=== PATIENT | female | born 1990 | race African-American/Black ===

== ENCOUNTER 2018-01-06 12:53 | Emergency (ER) | payer MEDICAID ==
[~2018-01-06] VITALS: Ht 165.1 cm; Wt 73.0 kg
[2018-01-06] MEDS ORDERED: ACETAMINOPHEN 325MG TABLET PO PRN (14:30)
[2018-01-06 15:12] LABS: CHLORIDE 107 mEq/L (98-107)
[2018-01-06 15:13] LABS: BASOPHILS % 0.2 % (0.0-2.0); EOSINOPHILS % 0.6 % (0.0-5.0); HEMOGLOBIN. 11.4 g/dL (12.0-16.0); LYMPHOCYTES % 9.5 % (20.0-50.0); MEAN CORPUSCULAR HEMOGLOBIN 31.2 pg (28.0-32.0); MEAN CORPUSCULAR VOLUME 93.1 fL (81.0-99.0); MEAN PLATELET VOLUME 8.7 fl (7.4-10.4); MONOCYTES % 5.6 % (2.0-8.0); NEUTROPHILS % 84.1 % (40.0-76.0); PLATELET 233 x1000/uL (130-400); RED BLOOD CELL COUNT 3.65 mill/uL (4.2-5.4); RED CELL DISTRIBUTION WIDTH 13.3 % (11.6-14.6)
[2018-01-06] MEDS ORDERED: ONDANSETRON HCL 4MG/2ML INJ IM ONE (15:30)
[2018-01-06] MEDS ORDERED: MORPHINE SULFATE 10 MG/ML CPJ IM ONE (15:30)
[2018-01-06 15:51] LABS: B-HCG QUANTITATIVE 6104 mIU/mL (<3)
[2018-01-06 17:41] LABS: CLARITY URINE CLEAR (CLEAR); COLOR URINE YELLOW (YELLOW); KETONES URINE NEGATIVE (NEGATIVE); LEUKOCYTE ESTERASE URINE NEGATIVE (NEGATIVE); NITRITE URINE NEGATIVE (NEGATIVE); OCCULT BLOOD URINE 1+ (NEGATIVE); PROTEIN URINE 2+ (NEGATIVE); SPECIFIC GRAVITY URINE 1.007 (1.005-1.030); UROBILINOGEN URINE 0.2 E.U./dL (0.2-1.0)
[2018-01-06 18:29] VITALS: BP 116/58
[2018-01-07] MEDS ORDERED: PNV1TABL76 MT (04:03)
== END 2018-01-06 18:45 | disposition home or self-care (01) ==
LOC: ER 13:36
DX: O26.892 Other specified pregnancy related conditions, second trimester (principal); M54.5 Low back pain; R55 Syncope and collapse; Z3A.21 21 weeks gestation of pregnancy; W18.39XA Other fall on same level, initial encounter; Y93.89 Activity, other specified; Y92.098 Other place in other non-institutional residence as the place of occurrence of the external cause
CPT/HCPCS: 36415; 72100; 76805; 80053; 81003; 84702; 85025; 93005; 96372; 99285; J2270; J2405

== ENCOUNTER 2018-01-07 03:22 | Observation (INO) | payer MEDICAID ==
[~2018-01-07] VITALS: Ht 165.1 cm; Wt 72.6 kg
[2018-01-07] MEDS ORDERED: PNV1TABL76 MT (04:03)
== END 2018-01-07 04:35 | disposition home or self-care (01) ==
LOC: L&D 03:22
PROVIDERS: ADMIT Obstetrics & Gynecology; ATTEND Obstetrics & Gynecology
DX: O26.892 Other specified pregnancy related conditions, second trimester (principal); M54.6 Pain in thoracic spine; R42 Dizziness and giddiness; Z3A.21 21 weeks gestation of pregnancy
CPT/HCPCS: G0378

== ENCOUNTER 2019-10-15 17:15 | Emergency (ER) | payer MEDICAID ==
[~2019-10-15] VITALS: Ht 165.1 cm; Wt 63.0 kg
[~2019-10-15 17:15] MED LIST: PNV1TABL76 MT
[2019-10-15 17:28] VITALS: BP 134/79
== END 2019-10-15 18:05 | disposition left against medical advice (07) ==
LOC: ER 17:15
DX: R44.0 Auditory hallucinations (principal); Z53.21 Procedure and treatment not carried out due to patient leaving prior to being seen by health care provider
CPT/HCPCS: 93005